=== PATIENT | female | born 1965 | race African-American/Black ===

== ENCOUNTER 2018-05-10 15:35 | Emergency (ER) | payer MEDICARE, MEDICAID ==
[~2018-05-10] VITALS: Ht 160 cm; Wt 68.0 kg
[~2018-05-10 15:35] MED LIST: AMLO10TA80 PO; CVS GAS RELIEF; DICY20TA11 PO; HYDR4TAB56 PO; LINZESS PO; LORA-250 PO; LOSA50TA20 PO; METO-385 PO; RIVA20TA PO; S350 PO
[2018-05-10] MEDS ORDERED: DIAZEPAM 5 MG/ML 2ML CPJ IM ONE (18:30)
[2018-05-10] MEDS ORDERED: FENTANYL CITRATE/PF 50MCG/ML 2ML VIAL IM ONE (20:00)
[2018-05-10] MEDS ORDERED: LORAZEPAM 2MG/ML CPJ IV ONE (21:15)
[2018-05-11 01:03] LABS: HEMATOCRIT 32.4 % (36.0-48.0); HEMOGLOBIN 10.4 g/dL (12.0-16.0); MEAN CORPUSCULAR HEMOGLOBIN 27.1 pg (28.0-32.0); MEAN CORPUSCULAR VOLUME 84.1 fL (81.0-99.0); PLATELET 338 x1000/uL (130-400); RED BLOOD CELL COUNT 3.86 mill/uL (4.2-5.4); RED CELL DISTRIBUTION WIDTH 15.4 % (11.6-14.6)
[2018-05-11 01:05] LABS: CHLORIDE 106 mEq/L (98-107)
[2018-05-11 01:10] LABS: C REACTIVE PROTEIN QUANT 1.2 mg/L (0.0-3.0)
[2018-05-11] MEDS ORDERED: POTASSIUM CHLORIDE 20MEQ TABLET SR PO ONE (01:30)
[2018-05-11 01:36] VITALS: BP 200/109
[2018-05-11] MEDS ORDERED: POTASSIUM CHLORIDE 20MEQ TABLET SR PO NR (01:45)
== END 2018-05-11 01:34 | disposition home or self-care (01) ==
LOC: ER 15:35
DX: M54.5 Low back pain (principal); M62.830 Muscle spasm of back; I10 Essential (primary) hypertension; Z90.49 Acquired absence of other specified parts of digestive tract; Z86.718 Personal history of other venous thrombosis and embolism; Z79.899 Other long term (current) drug therapy; Z88.8 Allergy status to other drugs, medicaments and biological substances; Z88.9 Allergy status to unspecified drugs, medicaments and biological substances; Z88.6 Allergy status to analgesic agent; Z88.1 Allergy status to other antibiotic agents
CPT/HCPCS: 36415; 72131; 80048; 85027; 85651; 86140; 96372; 96374; 99284; J2060; J3010

== ENCOUNTER 2018-07-23 09:21 | Inpatient (IN) | payer MEDICARE, MEDICAID ==
[~2018-07-23] VITALS: Ht 160 cm; Wt 66.7 kg
[2018-07-23] VITALS (10 sets, daily range): BP systolic 141–164; BP diastolic 73–98
[2018-07-23] MEDS: ASPIRIN 325MG EC TABLET PO SCH (09:00)
[2018-07-23] MEDS ORDERED: MORP30TA66 MT (09:52)
[2018-07-23] MEDS ORDERED: METH500T PO (09:52)
[2018-07-23] MEDS ORDERED: LIDOCAINE HCL 1% 20ML VIAL (Pyxis) INJ ONE (10:16)
[2018-07-23] MEDS ORDERED: IODIXANOL 320MG/ML 100 ML BOTTLE IV ONE ×2 (10:16→12:00)
[2018-07-23] MEDS ORDERED: FENTANYL CITRATE/PF 50MCG/ML 2ML VIAL ONE (10:48)
[2018-07-23] MEDS ORDERED: MIDAZOLAM HCL 2 MG/2 ML VIAL ONE ×2 (10:48→11:53)
[2018-07-23] MEDS ORDERED: HYDROMORPHONE HCL/PF 2MG/ML (OR) ONE (11:39)
[2018-07-23] MEDS ORDERED: IOHEXOL-300 100 ML BOTTLE ONE (11:45)
[2018-07-23] MEDS ORDERED: DIPHENHYDRAMINE 50MG/ML VIAL IV PRN (12:30)
[2018-07-23] MEDS ORDERED: LORAZEPAM 2MG/ML CPJ IM PRN (12:30)
[2018-07-23] MEDS ORDERED: ACETAMINOPHEN 325MG TABLET PO PRN (12:30)
[2018-07-23] MEDS ORDERED: MORPHINE SULFATE 4 MG/ML CPJ (NOT FOR IM USE) IV PRN (12:30)
[2018-07-23] MEDS ORDERED: ATROPINE SULFATE 1MG/10ML SYR IV PRN (12:30)
[2018-07-23] MEDS ORDERED: ASPIRIN 325MG TABLET ONE (12:34)
[2018-07-23] MEDS ORDERED: CLOPIDOGREL 75MG TABLET ONE (12:35)
[2018-07-23] MEDS: HYDROMORPHONE HCL/PF 2MG/ML CPJ IV PRN ×3 (13:19→20:42)
[2018-07-23] MEDS: LOSARTAN POTASSIUM 50 MG TABLET PO SCH (13:19)
[2018-07-23] MEDS: LORAZEPAM 2MG/ML CPJ IV PRN ×3 (13:26→20:55)
[2018-07-23] MEDS ORDERED: NITROGLYCERIN 50MCG/ML 10ML VIAL (CATH LAB) IV ONE (15:41)
[2018-07-23] MEDS ORDERED: HEPARIN SODIUM 1,000 UNIT/1ML VIAL IV ONE (15:41)
[2018-07-23] MEDS ORDERED: NICARDIPINE 100MCG/ML 10ML VIAL (CATH LAB) IV ONE (15:41)
[2018-07-23] MEDS: METOPROLOL TARTRATE 50MG TABLET PO SCH (20:16)
[2018-07-23] MEDS ORDERED: ATORVASTATIN CALCIUM 40MG TABLET PO SCH (21:00)
[2018-07-24] VITALS (10 sets, daily range): BP systolic 139–179; BP diastolic 66–99
[2018-07-24] MEDS ORDERED: MORPHINE SULFATE 15MG TABLET SR PO PRN (02:15)
[2018-07-24] MEDS ORDERED: DIPHENHYDRAMINE 25MG CAPSULE PO PRN (02:15)
[2018-07-24] MEDS: LORAZEPAM 1MG TABLET PO PRN ×2 (02:50→08:31)
[2018-07-24] MEDS: HYDROMORPHONE HCL 2MG TABLET PO PRN ×2 (02:50→08:33)
[2018-07-24] MEDS: LOSARTAN POTASSIUM 50 MG TABLET PO SCH (08:31)
[2018-07-24] MEDS: METOPROLOL TARTRATE 50MG TABLET PO SCH (08:31)
[2018-07-24] MEDS: ASPIRIN 325MG EC TABLET PO SCH (08:32)
[2018-07-24] MEDS ORDERED: CLOPIDOGREL 75MG TABLET PO SCH (09:00)
[2018-07-24] MEDS ORDERED: MEPERIDINE HCL/PF 50MG/ML CPJ IM NR (11:30)
[2018-07-24] MEDS ORDERED: LORAZEPAM 2MG/ML CPJ IV NR (12:00)
[2018-07-24] MEDS ORDERED: HYDROMORPHONE HCL/PF 2MG/ML CPJ IV NR (12:30)
[2018-07-24 13:48] LABS: BASOPHILS % 0.5 % (0.0-2.0); EOSINOPHILS % 0.3 % (0.0-5.0); HEMATOCRIT. 36.6 % (36.0-48.0); LYMPHOCYTES % 13.1 % (20.0-50.0); MEAN CORPUSCULAR HEMOGLOBIN 27.7 pg (28.0-32.0); MEAN CORPUSCULAR VOLUME 84.8 fL (81.0-99.0); MONOCYTES % 8.1 % (2.0-8.0); PLATELET 360 x1000/uL (130-400); RED BLOOD CELL COUNT 4.32 mill/uL (4.2-5.4); RED CELL DISTRIBUTION WIDTH 17.7 % (11.6-14.6)
[2018-07-24 13:51] LABS: CHLORIDE 103 mEq/L (98-107)
[2018-07-24] MEDS ORDERED: POTASSIUM CHLORIDE 20MEQ TABLET SR PO NR (14:30)
== END 2018-07-24 15:50 | disposition home or self-care (01) | DRG 247 ==
LOC: CCL 09:21 → 3WST 09:22
PROVIDERS: ADMIT Internal Medicine; ATTEND Specialist
PROC: 4A023N7 Measurement of Cardiac Sampling and Pressure, Left Heart, Percutaneous Approach (ICD-10-PCS; principal; 2018-07-23)
PROC: 027135Z Dilation of Coronary Artery, Two Arteries with Two Drug-eluting Intraluminal Devices, Percutaneous Approach (ICD-10-PCS; 2018-07-23)
PROC: B2111ZZ Fluoroscopy of Multiple Coronary Arteries using Low Osmolar Contrast (ICD-10-PCS; 2018-07-23)
DX: I25.10 Atherosclerotic heart disease of native coronary artery without angina pectoris (principal)
CPT/HCPCS: 36415; 80048; 85347; 92928; 92929; 93005; 93458; C1725; C1769; C1874; C1887; C1893; J1170; J1200; J1642; J1644; J2060; J2175; J2250; J2270; J3010; J3490; Q0163; Q9967